=== PATIENT | male | born 1975 | race Asian ===

== ENCOUNTER 2017-07-20 04:20 | Emergency (ER) | payer BC ==
[~2017-07-20] VITALS: Ht 170.2 cm; Wt 64.5 kg
[2017-07-20 04:23] VITALS: Ht 170.2 cm; Wt 64.5 kg
[2017-07-20] MEDS ORDERED: HYDROmorphone INJ 1 MG/ML SYR IV STA (04:36)
[2017-07-20] MEDS ORDERED: SODIUM CHLORIDE 0.9% 1000ML 1,000 ML IV STA (04:36)
[2017-07-20] MEDS ORDERED: ONDANSETRON INJ 2 MG/ML 2 ML VIAL IV STA (04:36)
[2017-07-20] MEDS ORDERED: OPTIRAY 320 IV PRN (04:45)
[2017-07-20] MEDS ORDERED: MULT-1027 PO (04:48)
[2017-07-20] MEDS ORDERED: LUTE15CA PO (04:48)
--- NOTE | 2017-07-20 04:51 | EMERGENCY ROOM VISIT NOTE ---
History Report prepared by Jabari: Ayaan Juarez Under the Supervision of: Dr. Laurent Estes M.D. First contact with patient: 04:29 Chief Complaint: ABDOMINAL PAIN Stated Complaint: ABD PAIN History of Present Illness The patient is a 41 year old male who presents to the Emergency Room with complaints of constant, moderate, abdominal pain beginning 2.5 hours ago. The patient states he ate clam chowder 10.5 hours ago and drank one beer. He reports he cannot think of anything else that could have caused his symptoms. The patient notes this happened two weeks ago. He denies diarrhea, swelling in the legs, rash, urinary symptoms, back pain, taking medication for the pain, chest pain, shortness of breath, daily medication, a history of abdominal surgeries, and abnormal laboratory exposure. Source of History: patient Onset: 2.5 hours ago Position: abdomen Symptom Intensity: moderate Timing: constant Associated Symptoms: No chest pain, No SOB, No back pain, No diarrhea, No urinary symptoms, No rash Note: Denies: swelling in her legs Review of Systems See HPI for pertinent positives & negatives. A total of 10 systems reviewed and were otherwise negative. Past Medical & Surgical Medical Problems: (1) No Known Active Medical Problems Family History Patient reports no known family medical history. Social History Smoking Status: Never Smoker Alcohol Use: occasionally Marital Status: Housing Status: lives with significant other Occupation Status: employed Current/Historical Medications Scheduled Lutein-Zeaxanthin (Lutein), 1 CAP PO DAILY Multiple Vitamin (Multi Vitamin), 1 TAB PO DAILY Allergies Coded Allergies: No Known Allergies (Unverified , 07/20/17) Physical Exam Vital Signs Date Time Temp Pulse Resp B/P (MAP) Pulse Ox O2 Delivery O2 Flow Rate FiO2 07/20/17 06:42 36.6 7 18 110/70 99 Room Air 07/20/17 05:37 64 18 102/73 99 Room Air 07/20/17 04:23 36.4 73 16 105/80 100 Room Air Physical Exam GENERAL: Patient is uncomfortable appearing and in moderate to severe distress. EYES: No scleral icterus, unremarkable pupils. ENT: Mucous membranes moist, no nasal congestion. NECK: No masses appreciated, no meningismus, trachea is midline. RESPIRATORY: No dyspnea. Clear to auscultation and equal bilaterally. No wheeze , no rhonchi. CARDIOVASCULAR: Regular rate and rhythm. No murmurs, rubs, gallops appreciated. GASTROINTESTINAL: Abdomen soft, mild epigastric tenderness, no peritonitis. Bowel sounds positive. No masses appreciated. BACK: No midline tenderness, no CVA tenderness EXTREMITIES: Normal motion all extremities, no cyanosis, no edema. NEUROLOGIC: Alert and oriented, no acute motor or sensory deficits, no focal weakness, cranial nerves grossly intact. SKIN: No rash, no jaundice, no diaphoresis. Medical Decision & Procedures ER Provider Diagnostic Interpretation: Stat Rad Radiology results and stated below per my review and radiologist interpretation: CT ABDOMEN & PELVIS With Contrast: The appendix is normal in appearance posterior and inferior to the cecum ( series 2; image 66). No pericecal inflammatory change identified. Fluid-filled loops of small bowel are nonspecific but may represent ileus. No bowel obstruction suggested. No free fluid. The liver, gallbladder, pancreas, spleen, adrenals and kidneys are unremarkable. Radiologist: Florentin De La Paz MD Laboratory Results 07/20/17 04:50 Red Blood Count 4.98, Mean Corpuscular Volume 87.8, Mean Corpuscular Hemoglobin 31.9, Mean Corpuscular Hemoglobin Concent 36.4, Mean Platelet Volume 9.1, Neutrophils (%) (Auto) 65.0, Lymphocytes (%) (Auto) 26.4, Monocytes (%) (Auto) 6.0, Eosinophils (%) (Auto) 2.4, Basophils (%) (Auto) 0.1, Neutrophils # (Auto) 4.52, Lymphocytes # (Auto) 1.84, Monocytes # (Auto) 0.42, Eosinophils # (Auto) 0.17, Basophils # (Auto) 0.01 07/20/17 04:50 Test 07/20/17 04:50 07/20/17 04:52 07/20/17 04:57 White Blood Count 6.97 K/uL (4.8-10.8) Red Blood Count 4.98 M/uL (4.7-6.1) Hemoglobin 15.9 g/dL (14.0-18.0) Hematocrit 43.7 % (42-52) Mean Corpuscular Volume 87.8 fL (80-100) Mean Corpuscular Hemoglobin 31.9 pg (25-34) Mean Corpuscular Hemoglobin Concent 36.4 g/dl (32-36) Platelet Count 246 K/uL (130-400) Mean Platelet Volume 9.1 fL (7.4-10.4) Neutrophils (%) (Auto) 65.0 % Lymphocytes (%) (Auto) 26.4 % Monocytes (%) (Auto) 6.0 % Eosinophils (%) (Auto) 2.4 % Basophils (%) (Auto) 0.1 % Neutrophils # (Auto) 4.52 K/uL (1.4-6.5) Lymphocytes # (Auto) 1.84 K/uL (1.2-3.4) Monocytes # (Auto) 0.42 K/uL (0.11-0.59) Eosinophils # (Auto) 0.17 K/uL (0-0.5) Basophils # (Auto) 0.01 K/uL (0-0.2) RDW Standard Deviation 38.4 fL (36.4-46.3) RDW Coefficient of Variation 12.1 % (11.5-14.5) Immature Granulocyte % (Auto) 0.1 % Immature Granulocyte # (Auto) 0.01 K/uL (0.00-0.02) Urine Color YELLOW Urine Appearance TURBID (CLEAR) Urine pH 7.5 (4.5-7.5) Urine Specific Center Line 1.021 (1.000-1.030) Urine Protein NEG (NEG) Urine Glucose (UA) NEG (NEG) Urine Ketones NEG (NEG) Urine Occult Blood NEG (NEG) Urine Nitrite NEG (NEG) Urine Bilirubin NEG (NEG) Urine Urobilinogen NEG (NEG) Urine Leukocyte Esterase NEG (NEG) Urine WBC (Auto) 0 /hpf (0-5) Urine RBC (Auto) 0-4 /hpf (0-4) Urine Hyaline Casts (Auto) 0 /lpf (0-5) Urine Epithelial Cells (Auto) 0-5 /lpf (0-5) Urine Bacteria (Auto) NEG (NEG) Est Creatinine Clear Calc Drug Dose 88.7 ml/min Estimated GFR () 109.0 Estimated GFR (Non- 94.1 BUN/Creatinine Ratio 13.4 (10-20) Calcium Level 9.3 mg/dl (8.5-10.1) Total Bilirubin 0.6 mg/dl (0.2-1) Direct Bilirubin 0.1 mg/dl (0-0.2) Aspartate Amino Transf (AST/SGOT) 29 U/L (15-37) Alanine Aminotransferase (ALT/SGPT) 38 U/L (12-78) Alkaline Phosphatase 72 U/L (45-117) Total Protein 8.2 gm/dl (6.4-8.2) Albumin 4.3 gm/dl (3.4-5.0) Lipase 155 U/L (73-393) Bedside Lactic Acid Venous 1.22 mmol/L (0.90-1.70) Bedside Hemoglobin 15.6 g/dl (14.0-18.0) Bedside Hematocrit 46 % (42-52) Bedside Sodium 141 mEq/L (135-144) Bedside Potassium 3.8 mEq/L (3.3-5.0) Bedside Chloride 104 mEq/L (101-112) Bedside Total CO2 25 mEq/l (24-31) Anion Gap 17.0 mmol/L (16-25) Bedside Blood Urea Nitrogen 15 mg/dl (7-18) Bedside Creatinine 0.9 mg/dl (0.6-1.3) Bedside Glucose (other) 96 mg/dl (70-99) Bedside Ionized Calcium (Hien) 1.12 mmol/l (1.12-1.32) Laboratory results as reviewed by me. Medications Administered Medications (Trade) Dose Ordered Sig/Jurgen Route Start Time Stop Time Status Last Admin Dose Admin Sodium Chloride 1,000 ml @ 999 mls/hr Q1H1M STAT IV 07/20/17 04:36 07/20/17 05:36 DC 07/20/17 04:36 999 MLS/HR Ondansetron HCl (Zofran Inj) 4 mg NOW STAT IV 07/20/17 04:36 07/20/17 04:37 DC 07/20/17 04:51 4 MG Hydromorphone HCl (Dilaudid Inj) 1 mg NOW STAT IV 07/20/17 04:36 07/20/17 04:37 DC 07/20/17 04:51 1 MG ED Course 0432: The patient was evaluated in room B05. A complete history and physical exam was performed. 0634: Reevaluated the patient. Discussed results and discharge instructions: he verbalized understanding and agreement. The patient is ready for discharge. Medical Decision Differential: Cholecystitis, Gallbladder disfunction, Hepatic Disfunction, Gastritis/PUD, Pancreatitis, Obstruction, Aortic Pathology, amongst other pathologies entertained. 41 yr old male with sudden onset epigastric/maddi-umbilical pain and nausea arrives from home. Occurred 2 weeks ago as well after eating same food. Exam without peritonitis. Labs look good but given intensity of pain felt that imaging necessary. Lactic acid was OK thus I felt this unlikely ischemic related and CT without evidence either. Does have ileus on CT. As he is now feeling much improved several hours later I feel this is reasonable to be discharged. He was given strict instructions regarding not only diet but need to RTED if worsening or other concerns. Medication Reconcilliation Current Medication List: was personally reviewed by me Blood Pressure Screening Patient's blood pressure: Normal blood pressure Blood pressure disposition: Did not require urgent referral Impression Primary Impression: Ileus Scribe Attestation The scribe's documentation has been prepared under my direction and personally reviewed by me in its entirety. I confirm that the note above accurately reflects all work, treatment, procedures, and medical decision making performed by me. Departure Information Dispostion Home / Self-Care Referrals No Doctor, Assigned (PCP) Forms Call Back Authorization, HOME CARE DOCUMENTATION FORM, IMPORTANT VISIT INFORMATION Patient Instructions My [facility] Additional Instructions Ileus is slowing of your small bowel. It is likely due to either irritation from foods or viral infection. In other cases it could be due to a blockage, though at this time there is no evidence of that. Keep to a light liquid diet over the next 24 to 48 hours and avoid fatty and thick foods. Return if you develop worsening pain, vomiting, abdominal swelling or other emergent concerns. It is important you follow up with your primary care provider for further management.
[2017-07-20] MEDS ORDERED: HYDROmorphone INJ 1 MG/ML SYR IV PRN (05:00)
[2017-07-20 05:03] LABS: BASO % 0.1 %; BASO ABS # 0.01 K/uL (0-0.2); EOS % 2.4 %; EOS ABS # 0.17 K/uL (0-0.5); HEMATOCRIT 43.7 % (42-52); HEMOGLOBIN 15.9 g/dL (14.0-18.0); IG# 0.01 K/uL (0.00-0.02); LYMPH % 26.4 %; LYMPH ABS # 1.84 K/uL (1.2-3.4); MEAN CELL VOLUME 87.8 fL (80-100); MEAN CORPUSCULAR HEMOGLOBIN 31.9 pg (25-34); MEAN CORPUSCULAR HGB CONC 36.4 g/dl (32-36); MEAN PLATELET VOLUME 9.1 fL (7.4-10.4); MONO ABS # 0.42 K/uL (0.11-0.59); NEUT ABS # 4.52 K/uL (1.4-6.5); PLATELET COUNT 246 K/uL (130-400); RED CELL DISTRIBUTION WIDTH CV 12.1 % (11.5-14.5); RED CELL DISTRIBUTION WIDTH SD 38.4 fL (36.4-46.3); WHITE BLOOD COUNT 6.97 K/uL (4.8-10.8)
[2017-07-20 05:11] LABS: ISTAT CREATININE 0.9 mg/dl (0.6-1.3); ISTAT IONIZED CALCIUM 1.12 mmol/l (1.12-1.32); ISTAT POTASSIUM 3.8 mEq/L (3.3-5.0)
[2017-07-20 05:21] LABS: ALBUMIN 4.3 gm/dl (3.4-5.0); CALCIUM 9.3 mg/dl (8.5-10.1); CREATININE 0.98 mg/dl (0.60-1.40); POTASSIUM 3.7 mmol/L (3.5-5.1)
[2017-07-20 05:24] LABS: TOTAL PROTEIN 8.2 gm/dl (6.4-8.2)
[2017-07-20 06:42] VITALS: BP 110/70; PULSE 7; TEMP 36.6; O2SAT 99
--- NOTE | 2017-07-20 07:58 | DIAGNOSTIC IMAGING REPORT ---
ABDOMEN AND PELVIS CT WITH IV CONTRAST CT DOSE: 274.90 mGy.cm HISTORY: Acute severe periumbilical abdominal pain severe epigastric/maddi-umbilical pain TECHNIQUE: Multiaxial CT images of the abdomen and pelvis were performed following the use of intravenous contrast. A dose lowering technique was utilized adhering to the principles of ALARA. COMPARISON STUDY: None. FINDINGS: Lung bases are clear. No pneumatosis or pneumoperitoneum. Imaged inferior cardiac chambers are unremarkable. Liver, spleen, gallbladder, pancreas and adrenal glands are unremarkable. Kidneys, ureters and bladder are within normal limits. Calcifications of the central prostate. No aortic aneurysm or pathologic adenopathy. No bowel obstruction or focal bowel wall thickening. No ascites. Fluid-filled nondilated loops of small bowel are seen within the lower abdomen and pelvis with air-fluid levels. Fluid-filled cecum is also noted. Retrocecal appendix appears normal. Soft tissues are unremarkable. Bones appear intact. IMPRESSION: 1. Normal appearance of the appendix. 2. Fluid-filled nondilated loops of small bowel throughout the lower abdomen and pelvis with air-fluid levels may reflect enteritis or ileus. No small bowel obstruction. Electronically signed by: Aneudy Shi M.D. 07/20/2017 7:57 AM Dictated Date/Time: 07/20/2017 7:53 AM
== END 2017-07-20 06:48 | disposition home or self-care (01) ==
LOC: C.EDB 04:22
DX: K56.7 Ileus, unspecified (principal)